=== PATIENT | male | born 1970 | race Caucasian/White ===

== ENCOUNTER 2017-01-02 11:57 | Emergency (ER) | payer BC ==
[2017-01-02] MEDS ORDERED: CYCLOBENZAPRINE HCL 10 MG TABLET (FP) PO ONE (12:10)
[2017-01-02] MEDS ORDERED: KETOROLAC TROMETHAMINE 60 MG/2 ML VIAL IM ONE (12:10)
[2017-01-02] MEDS ORDERED: KETOROLAC TROMETHAMINE 60 MG/2 ML VIAL ONE (12:14)
[2017-01-02] MEDS ORDERED: CYCLOBENZAPRINE HCL 10 MG TABLET (FP) ONE (12:14)
--- NOTE | 2017-01-02 12:15 | PDOC ---
History of Present Illness - General Chief Complaint: Pain, Acute Stated Complaint: RIGHT HIP PAIN Time Seen by Provider: 01/02/17 12:01 History Source: Patient Exam Limitations: No Limitations - History of Present Illness Initial Comments: 01/02/17 12:11 46 y/o male with right hip pain since yesterday. Denies fall or trauma. No fever or chills. Patient took Tylenol last night, but the pain is getting worse. Denies back pain, weakness or numbness. No incontinence. Was doing squats and thinks he may have over done it yesterday. Severity: Yes: mild Method of Injury: Yes: unknown Past History - Past Medical History Allergies/Adverse Reactions: Allergies Allergy/AdvReac Type Severity Reaction Status Date / Time No Known Allergies Allergy Verified 01/02/17 11:58 Home Medications: Ambulatory Orders Cyclobenzaprine HCl [Flexeril 10 mg] 10 mg PO TID PRN #10 tablet 01/02/17 Other medical history: DENIES - Psycho/Social/Smoking Cessation Hx Anxiety: No Suicidal Ideation: No Smoking History: Current every day smoker Number of Cigarettes Smoked Daily: 20 Information on smoking cessation initiated: Yes 'Breaking Loose' booklet given: 01/02/17 Hx Alcohol Use: No Drug/Substance Use Hx: No Substance Use Type: None Review of Systems - Review of Systems Able to Perform ROS?: Yes Is the patient limited Maltese proficient: No Constitutional: No: Chills, Fever Respiratory: No: Shortness of Breath Cardiac (ROS): No: Chest Pain Musculoskeletal: Yes: Joint Pain. No: Back Pain, Muscle Weakness, Joint Stiffness Integumentary: No: Bruising, Erythema Neurological: No: Numbness, Paresthesia, Weakness All Other Systems: Reviewed and Negative *Physical Exam - Vital Signs Last Vital Signs Temp Pulse Resp BP Pulse Ox 97.9 F 84 16 122/83 100 01/02/17 11:57 01/02/17 11:57 01/02/17 11:57 01/02/17 11:57 01/02/17 11:57 - Physical Exam General Appearance: Yes: Nourished, Appropriately Dressed. No: Apparent Distress HEENT: positive: ADELIA, Normal ENT Inspection Neck: positive: Supple Respiratory/Chest: positive: Lungs Clear, Normal Breath Sounds Cardiovascular: positive: Regular Rhythm, Regular Rate, S1, S2. negative: Edema , JVD, Murmur Vascular Pulses: Femoral (R): 4+, Femoral (L): 4+, Carotid (R): 4+, Carotid (L) : 4+, Dorsalis-Pedis (R): 4+, Doralis-Pedis (L): 4+ Gastrointestinal/Abdominal: positive: Normal Bowel Sounds, Flat, Soft Musculoskeletal: positive: Normal Inspection. negative: CVA Tenderness Extremity: positive: Normal Capillary Refill, Normal Inspection, Normal Range of Motion, Pelvis Stable, Other (right hip full ROM, strength 5+/5 b/l in LE, no focal deficits, no sign of septic joint, tender over right greater trochanter ). negative: Swelling, Calf Tenderness Integumentary: positive: Normal Color, Dry, Warm. 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 Will treat with anti inflammatories and follow up with Orthopedics if worsen return to ER Pt is in agreement with plan Pt is feeling better with medications Will discharge home on Motrin and Flexeril If worsen follow up with Orthopedics Pt is in agreement with plan *DC/Admit/Observation/Transfer Diagnosis at time of Disposition: Trochanteric bursitis of right hip - Discharge Dispostion Disposition: HOME Condition at time of disposition: Good Admit: No - Referrals Referrals: Riccardo Ritchie MD [Staff Physician] - - Patient Instructions Printed Discharge Instructions: DI for Hip Bursitis Additional Instructions: Ice, Motrin, rest Flexeril 10 mg 3x/day as needed Follow up with Orthopedics If worsen return to ER
[2017-01-02 12:16] VITALS: BP 122/83; PULSE 84; TEMP 97.9; BMI 30.4
== END 2017-01-02 13:37 | disposition home or self-care (01) ==
LOC: FER 11:57
PROC: 3E0233Z Introduction of Anti-inflammatory into Muscle, Percutaneous Approach (ICD-10-PCS; principal; 2017-01-02)
DX: M70.61 Trochanteric bursitis, right hip (principal); F17.210 Nicotine dependence, cigarettes, uncomplicated
CPT/HCPCS: 73502-TC-RT; 99282-25